=== PATIENT | male | born 1970 | race American Indian/Alaskan Native ===

== ENCOUNTER 2017-11-12 09:27 | Emergency (ER) | payer OTHER ==
[~2017-11-12] VITALS: Ht 172.7 cm; Wt 78.9 kg
== END 2017-11-12 17:31 | disposition home or self-care (01) ==
LOC: ER 09:27 → CPU-OBS 10:10 → ER 10:10
DX: R07.89 Other chest pain (principal); M94.0 Chondrocostal junction syndrome [Tietze]
CPT/HCPCS: G0379; G0378; 93005